=== PATIENT | male | born 1990 ===

== ENCOUNTER → 2017-03-20 | Outpatient (REF) ==
--- NOTE | 2017-03-20 08:49 | Diagnostic Imaging Report ---
PROCEDURE: MRI right joint lower extremity without contrast. TECHNIQUE: Multiplanar, multisequence non contrast-enhanced MRI of the right lower extremity was accomplished. INDICATION: Twisting right knee injury with pain. The anterior and posterior cruciate ligaments are intact. The menisci are also unremarkable. There is no evidence of articular cartilage disruption. The extensor mechanism has a normal appearance. There is no evidence of medial or lateral collateral ligamentous disruption. No bone marrow signal abnormality is identified to indicate fracture or contusion. There is a small amount of joint fluid present. IMPRESSION: No MRI evidence of internal derangement of the right knee. Dictated by: Dictated on workstation # [id number]
== END | disposition home or self-care (01) ==
LOC: OCC 07:45
PROVIDERS: ATTEND Nurse Practitioner Family
CPT/HCPCS: 73721